=== PATIENT | female | born 1975 | race Caucasian/White ===

== ENCOUNTER 2016-10-13 14:36 | Emergency (ER) | payer OTHER ==
--- NOTE | ~2016-10-13 | CR142 ---
[facility] A Service of [facility] & [facility] RADIOLOGY TEXT RESULTS PATIENT: ANDI SHEA LOCATION: [facility] : 79 UNIT #: [id number] AGE: [address]: Brenda Levy APRN SEX: F ORDER DR: [id number] [facility] [address] [place], [place] [address] [id number] MR#: [id number] Acc #: [id number] NAME: ANDI SHEA : 1975 SEX: F STUDY DATE/TIME: 10/13/2016 14:15 UNIT: [facility] ROOM: STUDY DESCRIPTION: CR Hand Min 3 Views Rt Attending Physician: Brenda Levy A.P.R.N. Ordering Physician: Ed Wagner Constantino M.D. Primary Care Physician: Jesus Voss M.D. MEDICAL IMAGING REPORT This report is preliminary unless electronic signature is present EXAM 3 views of the right hand. INDICATION Pain in the right hand and finger swelling for 1 week. FINDINGS No acute fracture or subluxation of the right hand is identified. There are no focal soft tissue abnormalities. I do not see any aggressive osseous abnormalities. IMPRESSION No acute disease. Dictated by... Tamika Canela M.D. THIS IS AN ELECTRONICALLY VERIFIED REPORT Tamika Canela M.D. at 10/13/2016 4:53 PM AFF/tmw TD: 10/13/2016 16:03 JOB #: [id number] MEDICAL IMAGING REPORT Page 1 of 1 COPY
[~2016-10-13 14:36] MED LIST: BLADDER MED; BUSPAR; BUSPAR15 MG PO; CHOLESTEROL MED; CIPROFLOXACIN500 M1 PO; FLOMAX0.4 M1 PO; LORTAB 5-325 M1 EACH PO; NAPROXEN PO; PAROXETINE HCL20 MG; PAXIL CR PO; PAXIL40 MG PO; PENICILLIN V P500 MG PO; PREVACID PO; SIMVASTATIN20 MG PO; VIBRAMYCIN100 M1 PO; VOLTAREN50 MG PO; ZOFRAN ODT4 MG/UDTAB SL; ZOFRAN PO
== END 2016-10-13 15:15 | disposition home or self-care (01) ==
LOC: CED 14:36
DX: R20.2 Paresthesia of skin (principal); E78.5 Hyperlipidemia, unspecified; K21.9 Gastro-esophageal reflux disease without esophagitis; F41.9 Anxiety disorder, unspecified; Z86.19 Personal history of other infectious and parasitic diseases; F17.210 Nicotine dependence, cigarettes, uncomplicated
CPT/HCPCS: 73130; 84703; 99283

== ENCOUNTER 2016-10-23 12:42 | Inpatient (IN) | payer OTHER ==
--- NOTE | ~2016-10-23 | PA ---
Unit #: [id number] #: [id number] Patient: ANDI SHEA [id number] [facility] [address] [place] [address] [id number] I MR#: [id number] NAME: ANDI SHEA ROOM: [facility] Age: 41 Sex: F Admission Date: 10/23/2016 : 1975 Date of Assessment: Attending Physician: Sj Bo M.D. Admitting Physician: Sj Bo M.D. Primary Care Physician: Jesus Voss M.D. PSYCHIATRIC ASSESSMENT INFORMANTS The patient reliability, fair; chart reliability, good. CHIEF COMPLAINT Depression and suicidal ideation. HISTORY OF PRESENT ILLNESS Ms. Andi Shea is a 41-year-old female, presented with the above-mentioned complaints. The patient has a history of [facility] for [facility] management; lives with friend. The patient presented due to increase in depressive symptoms and suicidal ideation with a plan. The patient reported due to current stressors she is currently suicidal and attempted to get a loaded gun the previous night to shoot herself. The patient reports that she feels medication is not working. Reports having decreased sleep and appetite. Reports she is talking to someone that is , at night cannot sleep. The patient reported that she uses marijuana to cope with her anxiety. The patient is needing inpatient admission at this time for psychiatric stabilization. PAST PSYCHIATRIC HISTORY Remarkable for history of previous treatment as mentioned above. FAMILY HISTORY/SOCIAL HISTORY The patient lives with friend. Poor support system. No history of any abuse. MEDICAL HISTORY Remarkable for pinched nerve in back and migraine headache. Musculoskeletal; muscle strength and tone, no atrophy or abnormal movement. Gait normal. MEDICATION HISTORY The patient is currently on Paxil. ALLERGIES No known drug allergies. SUBSTANCE ABUSE HISTORY The patient reported tobacco use, age of onset 13; occasional use of marijuana, age of onset 15; and crack cocaine, age of onset 17. The patient reported history of blackout, history of IV drug use, but no HIV or hepatitis. The patient is currently reporting muscle cramping, Unit #: [id number] #: [id number] Patient: ANDI SHEA diarrhea, depressed mood, irritability, poor appetite, and sleep. REVIEW OF SYSTEMS HEENT: Eyes, clear. Ears, nose, mouth, and throat; clear. CARDIOVASCULAR: Unremarkable. RESPIRATORY: Unremarkable. GI: Unremarkable. : Unremarkable. SKIN: Unremarkable. LYMPH NODE: Unremarkable. NEUROLOGIC: Unremarkable. ENDOCRINE: Unremarkable. HEMATOLOGIC: Unremarkable. ALLERGIC/IMMUNOLOGIC: Unremarkable. MUSCULOSKELETAL: Muscle strength and tone, no atrophy or abnormal movement. Gait normal. MENTAL STATUS EXAMINATION CONSTITUTIONAL: Measurement of vital signs; temperature 98.1, pulse 98, respirations 16, oxygen saturation 100%, and blood pressure 118/70. Height 5 feet 1 inch and weight 139 pounds. GENERAL APPEARANCE: The patient dressed casually. The patient did not show any facial deformity. MUSCULOSKELETAL: Please see above. PSYCHIATRIC EXAMINATION Description of speech; regular rate, normal volume, normal articulation, coherent, spontaneous. Description of thought process, goal directed. Description of association, intact. Description of abnormal psychotic thinking; the patient denied any hallucination, but guarded, paranoid, mood lability, depression, suicidal ideation. Denied any homicidal ideation. Description of the patient's judgment: Concerning everyday activity, poor. Social situation, poor. Concerning psychiatric condition, poor. Complete mental status examination; oriented in time, place, and person. Recent and remote memory, fair. Attention span and concentration, fair. Language; able to name object, repeat phrases. Fund of knowledge; aware of current event, passive vocabulary intact. Mood and affect, sad and dysphoric. Insight and judgment, fair to poor. ASSETS AND LIABILITIES Assets, the patient is articulate, able to take care of her ADL. Liabilities, history of depression, substance abuse. ADMITTING DIAGNOSES Psychiatric: 1. Major depressive disorder, recurrent, severe, F33.2. 2. Cannabis abuse, moderate, F12.20. Secondary diagnosis: Deferred. Medical diagnoses: Hyperlipidemia, asthma. Stressors: Psychosocial stressors. PSYCHIATRIC PLAN, TREATMENT GOAL, AND DISCHARGE PLAN 1. Advised to admit the patient on the inpatient unit. Provide safe, supportive, and structured environment. Unit #: [id number] #: [id number] Patient: ANDI SHEA 2. Ordered labs; CBC, CMP, UA, and UDS. 3. The patient is to be monitored for self-harm and aggression. The patient is to attend all the programing. 4. Advised to start the patient on Paxil 40 mg daily. Advised Vistaril 25 mg t.i.d. for anxiety, Motrin 400 mg t.i.d., Lipitor 10 mg daily, and Desyrel 75 mg at bedtime. We will continue to monitor. If needed, consider further adjustment of medication. 5. Treatment goal is to attain euthymic mood, gain insight into her problem, and learn coping skills. 6. Discharge plan: Plan is to stabilize the patient and consider followup in outpatient program. ESTIMATED LENGTH OF STAY 5 days. Dictated by... Bonnie Lozada/lyndsay TD: 10/24/2016 20:40 JOB #: [id number] PSYCHIATRIC ASSESSMENT Page 1 of 1 X Sj Bo MD PSYCHIATRIC ASSESSMENT
--- NOTE | ~2016-10-23 | DS ---
Unit #: [id number] #: [id number] Patient: ANDI SHEA [id number] [facility] [address] [place] [address] [id number] I MR#: [id number] NAME: ANDI SHEA ROOM: [facility] Age: 41 Sex: F Admission Date: 10/23/2016 : 1975 Discharge Date: 10/25/2016 Attending Physician: Sj Bo M.D. Primary Care Physician: Jesus Voss M.D. DISCHARGE SUMMARY REASON FOR ADMISSION Depression. DIAGNOSTIC STUDIES LABORATORY RESULTS: Unremarkable. HOSPITAL COURSE The patient was admitted to inpatient unit on 10/23/2016 and discharged on 10/25/2016. The patient was treated on the inpatient unit with group therapy, individual therapy, and medication management. The patient responded well with the above modalities of treatment. Subsequently, the patient was discharged with a plan to follow up in outpatient program. DISCHARGE MEDICATIONS Paxil 40 mg in the morning for depression, trazodone 50 mg at bedtime for sleep, and Vistaril 25 mg t.i.d. for anxiety. DISCHARGE DIAGNOSES Psychiatric: 1. Major depressive disorder, recurrent, F33.2. 2. Cannabis abuse, moderate, F12.20. Secondary diagnosis: Deferred. Medical diagnoses: Dyslipidemia, asthma. Stressors: Psychosocial stressors. DISCHARGE INSTRUCTIONS The patient is to follow up in outpatient clinic as per social welfare clerk. CONDITION ON DISCHARGE The patient was pleasant and cooperative. Denied any psychotic symptom or any suicidal ideation. PROGNOSIS Guarded. DIET AND ACTIVITY As tolerated. Dictated by... Sj Bo M.D. Unit #: [id number] #: [id number] Patient: ANDI SHEA SZC/modl TD: 10/25/2016 18:42 JOB #: [id number] DISCHARGE SUMMARY Page 1 of 1 X Sj Bo MD X DISCHARGE SUMMARY
--- NOTE | ~2016-10-23 | HP ---
Unit #: [id number] #: [id number] Patient: ANDI SHEA [id number] [place] [address] [id number] I MR#: [id number] NAME: ANDI SHEA ROOM: [facility] Age: 41 Sex: F Admission Date: 10/23/2016 : 1975 Attending Physician: Sj Bo M.D. Admitting Physician: Sj Bo M.D. Primary Care Physician: Jesus Voss M.D. HISTORY AND PHYSICAL HISTORY OF PRESENT ILLNESS Andi is a 41 year old admitted to [address] [place] [address] with depression. PAST MEDICAL HISTORY 1. Hyperlipidemia 2. Asthma. PAST SURGICAL HISTORY Nothing reported. ALLERGIES Latex. SOCIAL HISTORY Smokes one pack per day. Drinks alcohol on occasion. Admits to using marijuana on a daily basis. FAMILY HISTORY Medically noncontributory. REVIEW OF SYSTEMS CONSTITUTIONAL: No fever or chills. HEENT: Denies any sore throat, ear pain or runny nose. CARDIOVASCULAR: Denies chest pain, irregular heart rhythm or palpitations. CHEST: Denies shortness of breath or cough. No hemoptysis. GASTROINTESTINAL: Denies nausea, vomiting, diarrhea or chronic constipation. ENDOCRINE: Denies history of increased thirst or urination. No recent significant weight loss or gain. GENITOURINARY: Denies dysuria, frequency, or hematuria. SKIN: Denies any rashes. HEMATOLOGIC: Denies history of increased bleeding or bruising. MUSCULOSKELETAL: Denies any hot, swollen joints. No generalized muscle pain. NEUROLOGIC: Denies problems with vision or speech. No frequent, severe headaches. No numbness, tingling or weakness in any extremities. Denies loss of bladder or bowel control. CURRENT MEDICATIONS 1. Lipitor 10 mg daily 2. Desyrel 75 mg q.h.s. Unit #: [id number] #: [id number] Patient: ANDI SHEA 3. Vistaril p.r.n. 4. Milk of Magnesia p.r.n. 5. Maalox p.r.n. 6. Tylenol p.r.n. 7. Proventil inhaler p.r.n. 8. Nicotine patch 14 mg daily PHYSICAL EXAMINATION GENERAL: Alert, well-nourished, in no apparent distress. VITAL SIGNS: Blood pressure 122/74, heart rate 80, respirations 16, temperature 98.6. WEIGHT: 139 pounds. HEIGHT: 5'1". SKIN: Warm and dry without rash or lesion. HEENT: Normocephalic. TMs not viewed. Oral and nasal passages clear. Conjunctivae clear. Pupils equal, round and reactive to light and accommodation. Extraocular movements intact. NECK: Supple without lymphadenopathy or thyromegaly. HEART: Regular rate and rhythm without murmur. LUNGS: Clear. ABDOMEN: Soft, nontender. : Not done. EXTREMITIES: No evidence of cyanosis, clubbing or edema. Moves all extremities without focal deficit. NEUROLOGICAL: Grossly within normal limits. Cranial Nerves: II: Visual watts are intact. III, IV AND : Extraocular movements are intact. Pupils are equal, round and reactive to light. V: Facial sensation is grossly normal. VII: Facial movements and expression are normal. VIII: Auditory acuity grossly intact. IX, X: Uvula is midline. Phonation is normal. XI: Patient shrugs shoulders and turns head normally. XII: Tongue protrudes in the midline. Sensory and Motor Function: Sensory and motor sensation is grossly normal. Motor: moves all extremities well. Coordination: Gait is normal. Deep Tendon Reflexes: Intact. IMPRESSION Psychiatric admission RECOMMENDATIONS PSYCHIATRIC: Per psychiatrist. MEDICAL: I see no contraindications to participating in facility's activities. MEDICAL PROGNOSIS Good. MEDICAL CONDITION Stable. Dictated by... Mallika Sandoval P.A.-C. for Romel Pedraza M.D. Unit #: [id number] #: [id number] Patient: ANDI SHEA REESE/maxwell TD: 10/24/2016 03:55 JOB #: [id number] HISTORY AND PHYSICAL Page 1 of 1 X Mallika Sandoval HISTORY AND PHYSICAL
--- NOTE | ~2016-10-23 | PN ---
Unit #: [id number] #: [id number] Patient: ANDI SHEA [id number] [facility] [address] [place] [address] [id number] I MR#: [id number] NAME: ANDI SHEA ROOM: [facility] Age: 41 Sex: F Admission Date: 10/23/2016 : 1975 Attending Physician: Sj Bo M.D. Admitting Physician: Sj Bo M.D. Primary Care Physician: Bonnie Katz PROGRESS NOTES DATE OF SERVICE 10/24/2016 DISCUSSION Ms. Sanchez is a 41-year-old female seen on 10/24/2016. The patient interviewed, chart reviewed. Obtained information from nursing staff. The patient was compliant, cooperative. Mood sad, dysphoric, flat affect, isolative, guarded. Still having disorganized thought. Feeling hopelessness, worthlessness, suicidal ideation. Complete Review of Systems: Unremarkable. MENTAL STATUS EXAMINATION General Appearance: The patient dressed casually in the hospital attire. Attention span, concentration: Fair. Oriented in place and person. Mood and affect: Sad, dysphoric. Speech: Monotone. Thought process: [place]. The patient denied any thoughts of harming self or others but guarded. Recent and remote memory: Poor. Insight and judgment: Poor. DIAGNOSES 1. Major depressive disorder, recurrent. 2. Cannabis abuse, moderate. ASSESSMENT/PLAN Advised to continue with current medication and therapeutic protocol. We will monitor response to medication and make further adjustment of medication. Dictated by... Bonnie Lozada/romario TD: 10/26/2016 07:30 JOB #: [id number] Unit #: [id number] #: [id number] Patient: ANDI SHEA PROGRESS NOTES Page 1 of 1 X Sj Bo MD PROGRESS NOTE
[2016-10-24 09:53] LABS: BASOPHIL# 0.1 X10e3 (0-0.3); BASOPHIL% 0.6 % (0-2.5); EOSINOPHIL# 0.3 X10e3 (0-0.7); EOSINOPHIL% 3.1 % (0.0-7.0); HEMATOCRIT 44.2 % (35.0-45.0); HEMOGLOBIN 14.7 gm/dL (12.0-16.0); LYMPHOCYTE# 4.6 X10e3 (1.0-3.5); LYMPHOCYTE% 48.4 % (17.0-45.0); MEAN CELL VOLUME 90.1 FL (83-96); MEAN CORPUSCULAR HEMOGLOBIN 29.9 PG (28-34); MEAN CORPUSCULAR HGB CONC 33.2 g/dL (30-36); MEAN PLATELET VOLUME 6.6 FL (6.5-11.5); MONOCYTE# 0.9 X10e3 (0-1.0); MONOCYTE% 9.1 % (3.0-12.0); NEUTROPHIL# 3.7 X10e3 (1.5-7.1); NEUTROPHIL% 38.8 % (40-75); PLATELET COUNT 449 X10e3 (140-420); RED BLOOD COUNT 4.91 X10e (3.90-5.30); WHITE BLOOD COUNT 9.5 X10e3 (4.0-10.5)
[2016-10-24 10:03] LABS: THYROID STIMULATING HORMONE 2.05 uIU/ml (0.34-5.60)
[2016-10-24 10:07] LABS: DIFF IND NO
[2016-10-24 10:10] LABS: FREE THYROXIN (T4) 0.72 ng/dL (0.58-1.64)
[2016-10-24 10:20] LABS: ALBUMIN SERUM 4.2 g/dL (3.5-5.0); BILIRUBIN,TOTAL 0.6 mg/dL (0.2-2.0); BUN/CREATININE RATIO 17.5; CALCIUM SERUM 9.5 mg/dL (8.4-10.2); CREATININE SERUM 0.8 mg/dL (0.6-1.4); POTASSIUM 4.8 mmol/L (3.5-5.1); PROTEIN TOTAL SERUM 7.4 g/dL (6.0-8.3)
== END 2016-10-25 13:55 | disposition home or self-care (01) | DRG 885 ==
LOC: P2L 12:42
PROVIDERS: Psychiatry & Neurology Psychiatry
DX: F33.2 Major depressive disorder, recurrent severe without psychotic features (principal); E78.5 Hyperlipidemia, unspecified; F12.20 Cannabis dependence, uncomplicated; J45.909 Unspecified asthma, uncomplicated; Z91.040 Latex allergy status
CPT/HCPCS: 80053; 84439; 84443; 85025